=== PATIENT | male | born 1965 | race Two or more races ===

== ENCOUNTER 2020-06-07 19:02 | Inpatient (IN) | payer OTHER ==
[~2020-06-07] VITALS: Ht 157.5 cm; Wt 72.2 kg
[2020-06-07] VITALS (7 sets, daily range): BP systolic 161–173; BP diastolic 75–90
[2020-06-07] MEDS ORDERED: PLEASE ENTER ALLERGIES MC SCH (19:30)
[2020-06-07] MEDS ORDERED: PANTOPRAZOLE 40 MG IV IVPush ONE (19:30)
[2020-06-07] MEDS ORDERED: SODIUM CHLORIDE FLUSH 10ML SYR IVF ONE (19:30)
[2020-06-07] MEDS: PANTOPRAZOLE 80 MG in SODIUM CHLORIDE 0.9% 100 ML IV SCH (19:34)
[2020-06-07 19:43] LABS: MEAN CORPUSCULAR HEMOGLOBIN 38.8 pg (27.5-34.5); MEAN CORPUSCULAR HGB CONC 33.9 g/dL (33.2-36.2); MEAN PLATELET VOLUME 9.7 fL (7.4-10.4); PLATELET COUNT 144 x10^3/uL (130-400); RED BLOOD COUNT 1.74 x10^6/uL (4.38-5.82); RED CELL DISTRIBUTION WIDTH 15.3 % (9.4-14.8)
[2020-06-07 19:45] LABS: ALANINE AMINOTRANSFERASE 16 U/L (12-78); ALBUMIN 2.9 g/dL (3.4-5.0)
[2020-06-07 19:47] LABS: ALKALINE PHOSPHATASE 130 U/L (45-117); BILIRUBIN,TOTAL 0.3 mg/dL (0.2-1.0); TOTAL PROTEIN 7.3 g/dL (6.4-8.2)
[2020-06-07] MEDS ORDERED: PANTOPRAZOLE 40 MG IV ONE (19:47)
[2020-06-07 19:48] LABS: HEMOGRAM NOTE RECHECKED
--- NOTE | 2020-06-07 19:55 | NUR ---
PT IS TRANSFER FROM [facility] VIA EMS. PT WAS SEEN AT [facility] EARLIER TODAY FOR EPISTAXIS, NASAL PACKING PLACED & PT WENT HOME. PT THEN WENT BACK TO [facility] FOR REPORTED WEAKNESS & 10 LOOSE STOOL/DAY VIA FAMILY (PT IS [place] SPEAKING ONLY). PTS +OCCULT STOOL C H/H 6.5/18.5. PT HX OF ETOH ABUSE, REPORTED NO HX IN LAST 2 YRS. PT AMBULATORY FROM [facility] C STEADY GAIT. HAS 20G TO LAC, PATENT. PLACED ON MONITOR, NSR @80, EKG COMPLETED. DENIES ANY PAIN. PT AWARE OF PLAN FOR BLOOD TRANSFUSION, ADDITIONAL IV PLACED, LABS DRAWN & SENT. STARTED ON MEDS PER MAY.
[2020-06-07 19:59] LABS: ANION GAP 18 mmol/L (5-15); CHLORIDE 111 mmol/L (98-107); MD YES
[2020-06-07 20:00] LABS: INTERNATIONAL NORMALIZED RATIO 1.19 (0.93-1.1); PROTHROMBIN TIME 12.7 Seconds (9.6-11.5)
[2020-06-07 20:02] LABS: BAND#(MANUAL) 0.06 x10^3/uL; BANDS%(MANUAL) 1 % (0-7); BASOS#(MANUAL) 0.06 x10^3/uL (0-0.1); BASOS% (MANUAL) 1 % (0-1); EOS#(MANUAL) 0.25 x10^3/uL (0.0-0.4); EOS% (MANUAL) 4 % (1-7); LYMPH#(MANUAL) 0.63 x10^3/uL (1-3.4); LYMPHS% (MANUAL) 10 % (22-44); MONOS#(MANUAL) 0.38 x10^3/uL (0.3-2.7); MONOS% (MANUAL) 6 % (2-9); SEG#(MANUAL) 4.91 x10^3/uL (1.8-6.8); SEGS% (MANUAL) 78 % (42-75)
[2020-06-07 20:03] LABS: ANISOCYTOSIS 2+
--- NOTE | 2020-06-07 20:03 | NUR ---
BLADDER SCAN:120ML. PT DENIES ANY DYSURIA. MD AWARE, NO PLAN FOR WINSTON. URINAL AT BS.
[2020-06-07 20:04] LABS: <PLATELET ESTIMATE> ADEQUATE; <PLT MORPHOLOGY> NORMAL PLT MORPH; MICROCYTOSIS 1+; OVALOCYTES 1+
[2020-06-07 20:08] LABS: CALCIUM < 5.0 mg/dL (8.5-10.1)
--- NOTE | 2020-06-07 20:10 | NUR ---
Pt with positive antibodies, blood bank needs to know when pt was last tx and where. If at any time pt unstable and need emergent blood call [phone].
[2020-06-07] MEDS ORDERED: CALCIUM GLUCONATE 4.6 MEQ/10 ML ONE (20:21)
[2020-06-07] MEDS ORDERED: CALCIUM GLUCONATE 4.6 MEQ/10 ML IVPush ONE (20:30)
[2020-06-07] MEDS ORDERED: ALBUMIN HUMAN 25% 100 ML IV ONE (20:30)
[2020-06-07] MEDS ORDERED: CALCIUM GLUCONATE 4.6 MEQ in SODIUM CHLORIDE 0.9% 100 ML IV ONE (20:30)
--- NOTE | 2020-06-07 20:43 | NUR ---
150ML CLEAR YELLOW URINE VOID POST BLADDER SCAN
[2020-06-07] MEDS ORDERED: SODIUM CHLORIDE FLUSH 10ML SYR IVF PRN (21:00)
--- NOTE | 2020-06-07 21:43 | NUR ---
ADMITTING MD AT , SPOKE C ER MD, PLAN FOR DIALYSIS. STARTED ON TRANSFUSION.
[2020-06-07] MEDS ORDERED: hydrALAzine 20 MG/ML, 1ML IVPush PRN (22:00)
[2020-06-07] MEDS ORDERED: DOCUSATE 100 MG CAPSULE PO PRN (22:00)
[2020-06-07] MEDS ORDERED: morphine SULFATE 10 MG/ML, 1ML IVPush PRN (22:00)
[2020-06-07] MEDS ORDERED: BISACODYL 10 MG SUPP PR PRN (22:00)
[2020-06-07] MEDS ORDERED: PROMETHAZINE 25 MG/ML, 1ML IM PRN (22:00)
[2020-06-07] MEDS ORDERED: ONDANSETRON 2MG/ML, 2ML IVPush PRN (22:00)
[2020-06-07] MEDS ORDERED: OXYcodone IR 5MG TABLET PO PRN (22:00)
[2020-06-07] MEDS ORDERED: ONDANSETRON ODT 4 MG PO PRN (22:00)
[2020-06-07] MEDS ORDERED: POLYETHYLENE GLYCOL 17 GM PACKET PO PRN (22:00)
[2020-06-07] MEDS ORDERED: LIDOCAINE 1%, 10ML ONE (22:07)
--- NOTE | 2020-06-07 22:12 | NUR ---
SPOKE C HEEL SANDER RUBBER, AWARE PT IS GOING TO FLOOR AND DOES NOT HAVE DIALYSIS CATH AT THIS TIME.
--- NOTE | 2020-06-07 22:26 | NUR ---
DR NGO AT TO PLACE DIALYSIS CATH. CHARGE AWARE OF DELAY
--- NOTE | 2020-06-07 22:56 | NUR ---
DIALYSIS PORT COMPLETED, CXR AT , OK TO USE VIA DR RODRIGUEZ. SPOKE Charles GONG RN, WILL, AWARE PT BEING SENT TO [phone].
--- NOTE | 2020-06-07 23:00 | NUR ---
LAB CALLED FOR CRITICAL, CA<5 & PTH MACHINE IS DOWN, ENGINEERS HAVE BEEN CALLED, UNSURE WHEN PROBLEM WILL BE RESOLVED.
[2020-06-07 23:01] LABS: CALCIUM < 5.0 mg/dL (8.5-10.1)
[2020-06-08] VITALS (16 sets, daily range): BP systolic 126–172; BP diastolic 72–95
[2020-06-08] MEDS: HEPARIN 5,000 UNITS/ML, 1ML SQ SCH ×4 (03:49→22:00)
[2020-06-08] MEDS: PANTOPRAZOLE 80 MG in SODIUM CHLORIDE 0.9% 100 ML IV SCH ×2 (04:07→14:21)
[2020-06-08 05:55] LABS: BASOPHILS % (AUTO) 0 % (0-1); CHLORIDE 106 mmol/L (98-107); EOSINOPHILS % (AUTO) 3 % (1-7); LYMPHOCYTES % (AUTO) 9 % (22-44); MEAN CORPUSCULAR HEMOGLOBIN 35.8 pg (27.5-34.5); MEAN CORPUSCULAR HGB CONC 34.9 g/dL (33.2-36.2); MEAN PLATELET VOLUME 9.7 fL (7.4-10.4); MONOCYTES % (AUTO) 8 % (2-9); NEUTROPHILS % (AUTO) 80 % (42-75); PLATELET COUNT 100 x10^3/uL (130-400); RED BLOOD COUNT 2.52 x10^6/uL (4.38-5.82); RED CELL DISTRIBUTION WIDTH 23.4 % (9.4-14.8)
[2020-06-08 06:27] LABS: MD MORPH REVIEW ONLY
[2020-06-08 06:28] LABS: MICROSCOPIC AUTO
[2020-06-08 06:30] LABS: <PLATELET ESTIMATE> DECREASED; ALANINE AMINOTRANSFERASE 16 U/L (12-78); ALBUMIN 3.3 g/dL (3.4-5.0); ALKALINE PHOSPHATASE 123 U/L (45-117); ANION GAP 15 mmol/L (5-15); ANISOCYTOSIS 2+; CALCIUM 6.3 mg/dL (8.5-10.1); CHOL/HDL RATIO 5.4; CHOLESTEROL, TOTAL 152 mg/dL (140-239); CREATINE KINASE, TOTAL 1185 U/L (39-308); HDL CHOL % 18 % (26-37); HDL CHOLESTEROL (DIRECT) 28 mg/dL (40-60); LARGE PLATELETS 1+; LDL CHOLESTEROL,CALCULATED 103 mg/dL (54-169); LDL/HDL RATIO 3.7 (0.5-3.0); MICROCYTOSIS 1+; TOTAL PROTEIN 7.6 g/dL (6.4-8.2); TRIGLYCERIDES 103 mg/dL (50-200); VLDL CHOLESTEROL 21 mg/dL (0-25)
[2020-06-08 06:31] LABS: OVALOCYTES 1+
[2020-06-08 06:31] LABS: CHLORIDE,URINE RANDOM 69 mmol/L; POTASSIUM,URINE RANDOM 18 mmol/L; SODIUM,URINE RANDOM 67 mmol/L
[2020-06-08] MEDS ORDERED: MAGNESIUM SULFATE PMX 2GM/50ML 50 ML IV ONE (08:30)
[2020-06-08] MEDS: LOSARTAN 50MG TABLET PO SCH (08:54)
[2020-06-08] MEDS: CEPHALEXIN 500 MG CAPSULE PO SCH ×2 (08:54→21:02)
[2020-06-08] MEDS: IRON SUCROSE COMPLEX 100MG/5ML IV SCH (11:37)
[2020-06-08] MEDS: CALCITRIOL 0.25 MCG CAPSULE PO SCH (11:37)
[2020-06-08] MEDS: ARANESP 100 MCG/ML **ESRD SQ SCH (11:37)
[2020-06-08 14:17] LABS: MICROSCOPIC INDICATED
[2020-06-08 14:18] LABS: CREATININE,URINE RANDOM 54.9 mg/dL
[2020-06-09 00:30] VITALS: BP 135/75
[2020-06-09] MEDS: PANTOPRAZOLE 80 MG in SODIUM CHLORIDE 0.9% 100 ML IV SCH ×3 (01:45→23:43)
[2020-06-09 05:07] LABS: BASOPHILS % (AUTO) 0 % (0-1); EOSINOPHILS % (AUTO) 4 % (1-7); LYMPHOCYTES % (AUTO) 12 % (22-44); MEAN CORPUSCULAR HEMOGLOBIN 36.3 pg (27.5-34.5); MEAN CORPUSCULAR HGB CONC 35.9 g/dL (33.2-36.2); MEAN PLATELET VOLUME 8.6 fL (7.4-10.4); MONOCYTES % (AUTO) 10 % (2-9); NEUTROPHILS % (AUTO) 73 % (42-75); PLATELET COUNT 93 x10^3/uL (130-400); RED BLOOD COUNT 2.71 x10^6/uL (4.38-5.82); RED CELL DISTRIBUTION WIDTH 23.2 % (9.4-14.8)
[2020-06-09] MEDS: HEPARIN 5,000 UNITS/ML, 1ML SQ SCH ×3 (05:13→22:00)
[2020-06-09 05:14] LABS: ALANINE AMINOTRANSFERASE 16 U/L (12-78); ALBUMIN 3.2 g/dL (3.4-5.0); ANION GAP 11 mmol/L (5-15); CALCIUM 6.5 mg/dL (8.5-10.1); CHLORIDE 101 mmol/L (98-107); CREATININE 9.06 mg/dL (0.7-1.3)
[2020-06-09 05:16] LABS: ALKALINE PHOSPHATASE 123 U/L (45-117); BILIRUBIN,TOTAL 0.5 mg/dL (0.2-1.0); TOTAL PROTEIN 7.7 g/dL (6.4-8.2)
[2020-06-09 05:36] LABS: MD SCAN
[2020-06-09 07:07] VITALS: BP 123/82
[2020-06-09] MEDS: LOSARTAN 50MG TABLET PO SCH (09:00)
[2020-06-09] MEDS: CALCITRIOL 0.25 MCG CAPSULE PO SCH (09:27)
[2020-06-09] MEDS: CEPHALEXIN 500 MG CAPSULE PO SCH ×2 (09:27→21:12)
[2020-06-09 10:41] LABS: OCCULT BLOOD POSITIVE (NEGATIVE)
[2020-06-09 12:48] VITALS: BP 143/79
[2020-06-09] MEDS: IRON SUCROSE COMPLEX 100MG/5ML IV SCH (14:52)
[2020-06-09 17:23] VITALS: BP 154/84
[2020-06-09 20:18] VITALS: BP 110/73
[2020-06-10 01:36] VITALS: BP 102/70
[2020-06-10] MEDS: HEPARIN 5,000 UNITS/ML, 1ML SQ SCH ×3 (06:00→19:58)
[2020-06-10] MEDS: CEPHALEXIN 500 MG CAPSULE PO SCH ×2 (08:04→20:59)
[2020-06-10] MEDS: LOSARTAN 50MG TABLET PO SCH (08:04)
[2020-06-10] MEDS: CALCITRIOL 0.25 MCG CAPSULE PO SCH (08:04)
[2020-06-10 08:06] VITALS: BP 104/67
[2020-06-10 08:26] VITALS: BP 105/70
[2020-06-10] MEDS: PANTOPRAZOLE 80 MG in SODIUM CHLORIDE 0.9% 100 ML IV SCH ×2 (09:46→21:00)
[2020-06-10] MEDS: ERGOCALCIFEROL 50,000 UNIT CAPSULE PO SCH (09:46)
[2020-06-10 10:32] LABS: BASOPHILS % (AUTO) 0 % (0-1); EOSINOPHILS % (AUTO) 4 % (1-7); LYMPHOCYTES % (AUTO) 16 % (22-44); MEAN CORPUSCULAR HEMOGLOBIN 35.4 pg (27.5-34.5); MEAN CORPUSCULAR HGB CONC 34.2 g/dL (33.2-36.2); MONOCYTES % (AUTO) 7 % (2-9); NEUTROPHILS % (AUTO) 73 % (42-75); PLATELET COUNT 123 x10^3/uL (130-400); RED BLOOD COUNT 3.12 x10^6/uL (4.38-5.82); RED CELL DISTRIBUTION WIDTH 22.8 % (9.4-14.8)
[2020-06-10 10:36] LABS: MD NO
[2020-06-10 14:24] VITALS: BP 98/71
[2020-06-10] MEDS: IRON SUCROSE COMPLEX 100MG/5ML IV SCH (15:38)
[2020-06-10 20:00] VITALS: BP 104/75
[2020-06-11 01:10] VITALS: BP 110/82
[2020-06-11] MEDS: HEPARIN 5,000 UNITS/ML, 1ML SQ SCH ×3 (04:51→21:01)
[2020-06-11 05:22] LABS: BASOPHILS % (AUTO) 0 % (0-1); EOSINOPHILS % (AUTO) 6 % (1-7); LYMPHOCYTES % (AUTO) 14 % (22-44); MEAN CORPUSCULAR HGB CONC 34.7 g/dL (33.2-36.2); MEAN PLATELET VOLUME 9.9 fL (7.4-10.4); MONOCYTES % (AUTO) 10 % (2-9); NEUTROPHILS % (AUTO) 70 % (42-75); PLATELET COUNT 106 x10^3/uL (130-400); RED BLOOD COUNT 3.12 x10^6/uL (4.38-5.82); RED CELL DISTRIBUTION WIDTH 22.5 % (9.4-14.8)
[2020-06-11 05:31] LABS: ALBUMIN 3.7 g/dL (3.4-5.0); ANION GAP 11 mmol/L (5-15); CALCIUM 7.5 mg/dL (8.5-10.1); CHLORIDE 95 mmol/L (98-107); CREATININE 7.06 mg/dL (0.7-1.3)
[2020-06-11 05:49] LABS: MD SCAN
[2020-06-11] MEDS: PANTOPRAZOLE 80 MG in SODIUM CHLORIDE 0.9% 100 ML IV SCH ×2 (06:24→15:16)
[2020-06-11 07:00] VITALS: BP 96/64
[2020-06-11] MEDS: CALCITRIOL 0.25 MCG CAPSULE PO SCH (12:05)
[2020-06-11] MEDS: LOSARTAN 25MG TABLET PO SCH (12:05)
[2020-06-11] MEDS: CEPHALEXIN 500 MG CAPSULE PO SCH ×2 (12:05→21:01)
[2020-06-11] MEDS ORDERED: FLUMAZENIL 0.1 MG/1 ML, 5ML ONE (12:38)
[2020-06-11] MEDS ORDERED: MIDAZOLAM 1 MG/ML, 5ML ONE (12:38)
[2020-06-11] MEDS ORDERED: FENTANYL PF 100 MCG/2ML ONE (12:38)
[2020-06-11] MEDS ORDERED: NALOXONE 1 MG/ML, 2ML ONE (12:38)
[2020-06-11] MEDS ORDERED: LIDOCAINE 1%, 10ML ONE (12:50)
[2020-06-11 14:09] VITALS: BP 106/88
[2020-06-11] MEDS: IRON SUCROSE COMPLEX 100MG/5ML IV SCH (15:16)
[2020-06-11] MEDS ORDERED: SODIUM CHLORIDE 0.9%, 500ML IVBOLUS ONE (16:00)
[2020-06-11 19:51] VITALS: BP 111/99
[2020-06-12 02:00] VITALS: BP 108/72
[2020-06-12] MEDS: PANTOPRAZOLE 80 MG in SODIUM CHLORIDE 0.9% 100 ML IV SCH ×2 (03:06→13:04)
[2020-06-12 05:23] LABS: BASOPHILS % (AUTO) 0 % (0-1); EOSINOPHILS % (AUTO) 8 % (1-7); LYMPHOCYTES % (AUTO) 14 % (22-44); MD NO; MEAN CORPUSCULAR HEMOGLOBIN 35.7 pg (27.5-34.5); MEAN CORPUSCULAR HGB CONC 34.4 g/dL (33.2-36.2); MEAN PLATELET VOLUME 10.5 fL (7.4-10.4); MONOCYTES % (AUTO) 8 % (2-9); NEUTROPHILS % (AUTO) 70 % (42-75); PLATELET COUNT 104 x10^3/uL (130-400); RED BLOOD COUNT 2.93 x10^6/uL (4.38-5.82); RED CELL DISTRIBUTION WIDTH 21.9 % (9.4-14.8)
[2020-06-12] MEDS: HEPARIN 5,000 UNITS/ML, 1ML SQ SCH ×2 (05:26→17:59)
[2020-06-12 05:38] LABS: ALBUMIN 3.4 g/dL (3.4-5.0); ANION GAP 11 mmol/L (5-15); CALCIUM 6.8 mg/dL (8.5-10.1); CHLORIDE 97 mmol/L (98-107)
[2020-06-12 05:41] LABS: ALANINE AMINOTRANSFERASE 17 U/L (12-78); ALKALINE PHOSPHATASE 120 U/L (45-117); BILIRUBIN,TOTAL 0.5 mg/dL (0.2-1.0); CREATININE 7.12 mg/dL (0.7-1.3); TOTAL PROTEIN 7.6 g/dL (6.4-8.2)
[2020-06-12 07:59] VITALS: BP 100/63
[2020-06-12] MEDS: CALCITRIOL 0.25 MCG CAPSULE PO SCH (09:20)
[2020-06-12] MEDS: CEPHALEXIN 500 MG CAPSULE PO SCH ×2 (09:20→21:01)
[2020-06-12] MEDS: LOSARTAN 25MG TABLET PO SCH (09:20)
[2020-06-12 16:03] VITALS: BP 117/70
[2020-06-12] MEDS ORDERED: IRON SUCROSE COMPLEX 100MG/5ML ONE ×2 (17:55→17:57)
[2020-06-12] MEDS: IRON SUCROSE COMPLEX 100MG/5ML IV SCH (17:58)
[2020-06-12 19:03] VITALS: BP 106/61
[2020-06-13 00:39] VITALS: BP 120/69
[2020-06-13] MEDS: HEPARIN 5,000 UNITS/ML, 1ML SQ SCH ×3 (02:07→21:28)
[2020-06-13] MEDS: PANTOPRAZOLE 40MG TABLET PO SCH (05:58)
[2020-06-13 06:33] VITALS: BP 119/73
[2020-06-13 13:58] VITALS: BP 120/74
[2020-06-13] MEDS: CEPHALEXIN 500 MG CAPSULE PO SCH ×2 (14:01→21:27)
[2020-06-13] MEDS: CALCITRIOL 0.25 MCG CAPSULE PO SCH (14:01)
[2020-06-13] MEDS: LOSARTAN 25MG TABLET PO SCH (14:01)
[2020-06-13 19:50] VITALS: BP 119/75
[2020-06-14 00:10] VITALS: BP 114/69
[2020-06-14] MEDS: HEPARIN 5,000 UNITS/ML, 1ML SQ SCH ×3 (03:25→21:09)
[2020-06-14] MEDS: PANTOPRAZOLE 40MG TABLET PO SCH (05:44)
[2020-06-14 06:42] VITALS: BP 99/62
[2020-06-14] MEDS ORDERED: LIDOCAINE 1%, 10ML ONE (08:06)
[2020-06-14] MEDS ORDERED: LIDOCAINE 1%, 20ML ONE (08:06)
[2020-06-14] MEDS ORDERED: MIDAZOLAM 1 MG/ML, 5ML ONE (08:08)
[2020-06-14] MEDS ORDERED: FLUMAZENIL 0.1 MG/1 ML, 5ML ONE (08:08)
[2020-06-14] MEDS ORDERED: FENTANYL PF 100 MCG/2ML ONE (08:08)
[2020-06-14] MEDS ORDERED: NALOXONE 1 MG/ML, 2ML ONE (08:08)
[2020-06-14 10:10] VITALS: BP 114/70
[2020-06-14] MEDS: LOSARTAN 25MG TABLET PO SCH (12:10)
[2020-06-14] MEDS: CALCITRIOL 0.25 MCG CAPSULE PO SCH (12:10)
[2020-06-14] MEDS: CEPHALEXIN 500 MG CAPSULE PO SCH (12:10)
[2020-06-14 12:40] VITALS: BP 107/72
[2020-06-14 19:54] VITALS: BP 106/69
[2020-06-15 00:28] VITALS: BP 113/70
[2020-06-15 05:11] LABS: BASOPHILS % (AUTO) 0 % (0-1); EOSINOPHILS % (AUTO) 8 % (1-7); LYMPHOCYTES % (AUTO) 12 % (22-44); MEAN CORPUSCULAR HEMOGLOBIN 36.4 pg (27.5-34.5); MEAN CORPUSCULAR HGB CONC 34.5 g/dL (33.2-36.2); MEAN PLATELET VOLUME 9.7 fL (7.4-10.4); MONOCYTES % (AUTO) 10 % (2-9); NEUTROPHILS % (AUTO) 71 % (42-75); PLATELET COUNT 108 x10^3/uL (130-400); RED BLOOD COUNT 2.58 x10^6/uL (4.38-5.82); RED CELL DISTRIBUTION WIDTH 22.8 % (9.4-14.8)
[2020-06-15 05:20] LABS: CHLORIDE 97 mmol/L (98-107)
[2020-06-15 05:28] LABS: ANION GAP 14 mmol/L (5-15); CALCIUM 6.2 mg/dL (8.5-10.1)
[2020-06-15] MEDS: PANTOPRAZOLE 40MG TABLET PO SCH (05:43)
[2020-06-15] MEDS: HEPARIN 5,000 UNITS/ML, 1ML SQ SCH ×3 (05:43→21:17)
[2020-06-15 06:00] LABS: MD SCAN
[2020-06-15 07:40] VITALS: BP 131/68
[2020-06-15] MEDS: LOSARTAN 25MG TABLET PO SCH (09:00)
[2020-06-15] MEDS: ARANESP 100 MCG/ML **ESRD SQ SCH (10:30)
[2020-06-15] MEDS: CALCITRIOL 0.25 MCG CAPSULE PO SCH (12:14)
[2020-06-15 13:39] VITALS: BP 103/66
[2020-06-15 19:45] VITALS: BP 114/67
[2020-06-16 01:29] VITALS: BP 102/64
[2020-06-16] MEDS: HEPARIN 5,000 UNITS/ML, 1ML SQ SCH ×2 (06:04→18:30)
[2020-06-16] MEDS: PANTOPRAZOLE 40MG TABLET PO SCH (06:04)
[2020-06-16 08:02] VITALS: BP 97/60
[2020-06-16] MEDS: LOSARTAN 25MG TABLET PO SCH (08:32)
[2020-06-16] MEDS: CALCITRIOL 0.25 MCG CAPSULE PO SCH (08:39)
[2020-06-16 14:21] VITALS: BP 124/67
[2020-06-16 19:14] VITALS: BP 128/71
[2020-06-17 00:52] VITALS: BP 126/69
[2020-06-17 05:33] LABS: BASOPHILS % (AUTO) 0 % (0-1); EOSINOPHILS % (AUTO) 7 % (1-7); LYMPHOCYTES % (AUTO) 15 % (22-44); MEAN CORPUSCULAR HEMOGLOBIN 36.7 pg (27.5-34.5); MEAN CORPUSCULAR HGB CONC 34.7 g/dL (33.2-36.2); MEAN PLATELET VOLUME 9.6 fL (7.4-10.4); MONOCYTES % (AUTO) 11 % (2-9); NEUTROPHILS % (AUTO) 67 % (42-75); PLATELET COUNT 122 x10^3/uL (130-400); RED CELL DISTRIBUTION WIDTH 23.6 % (9.4-14.8)
[2020-06-17 05:41] LABS: CHLORIDE 91 mmol/L (98-107)
[2020-06-17 05:47] LABS: ALANINE AMINOTRANSFERASE 17 U/L (12-78); ALBUMIN 3.3 g/dL (3.4-5.0); ALKALINE PHOSPHATASE 115 U/L (45-117); ANION GAP 17 mmol/L (5-15); BILIRUBIN,TOTAL 0.4 mg/dL (0.2-1.0); CALCIUM 6.6 mg/dL (8.5-10.1); TOTAL PROTEIN 7.2 g/dL (6.4-8.2)
[2020-06-17 06:06] LABS: MD SCAN
[2020-06-17] MEDS: PANTOPRAZOLE 40MG TABLET PO SCH (06:06)
[2020-06-17] MEDS: HEPARIN 5,000 UNITS/ML, 1ML SQ SCH ×2 (06:08→18:39)
[2020-06-17 06:10] VITALS: BP 132/75
[2020-06-17] MEDS: CALCITRIOL 0.25 MCG CAPSULE PO SCH (08:26)
[2020-06-17] MEDS: ERGOCALCIFEROL 50,000 UNIT CAPSULE PO SCH (08:26)
[2020-06-17] MEDS: LOSARTAN 25MG TABLET PO SCH (08:26)
[2020-06-17 14:27] VITALS: BP 128/74
[2020-06-17 19:24] VITALS: BP 140/76
[2020-06-18 01:46] VITALS: BP 133/72
[2020-06-18 05:45] LABS: BASOPHILS % (AUTO) 0 % (0-1); EOSINOPHILS % (AUTO) 5 % (1-7); LYMPHOCYTES % (AUTO) 11 % (22-44); MEAN CORPUSCULAR HEMOGLOBIN 36.6 pg (27.5-34.5); MEAN PLATELET VOLUME 9.1 fL (7.4-10.4); MONOCYTES % (AUTO) 10 % (2-9); NEUTROPHILS % (AUTO) 75 % (42-75); PLATELET COUNT 131 x10^3/uL (130-400); RED BLOOD COUNT 2.43 x10^6/uL (4.38-5.82); RED CELL DISTRIBUTION WIDTH 23.2 % (9.4-14.8)
[2020-06-18 05:54] LABS: ANION GAP 15 mmol/L (5-15); CALCIUM 6.1 mg/dL (8.5-10.1); CHLORIDE 91 mmol/L (98-107)
[2020-06-18 05:57] LABS: ALANINE AMINOTRANSFERASE 18 U/L (12-78); ALKALINE PHOSPHATASE 119 U/L (45-117); BILIRUBIN,TOTAL 0.3 mg/dL (0.2-1.0); TOTAL PROTEIN 6.8 g/dL (6.4-8.2)
[2020-06-18 06:12] LABS: MD MORPH REVIEW ONLY
[2020-06-18 06:13] LABS: <PLATELET ESTIMATE> DECREASED; <PLT MORPHOLOGY> NORMAL PLT MORPH; ANISOCYTOSIS 1+; OVALOCYTES 1+; TEAR DROPS 1+
[2020-06-18 06:51] VITALS: BP 132/64
[2020-06-18] MEDS: HEPARIN 5,000 UNITS/ML, 1ML SQ SCH ×2 (07:17→17:42)
[2020-06-18] MEDS: PANTOPRAZOLE 40MG TABLET PO SCH (07:17)
[2020-06-18] MEDS: LOSARTAN 25MG TABLET PO SCH (08:21)
[2020-06-18] MEDS: CALCITRIOL 0.25 MCG CAPSULE PO SCH (08:21)
[2020-06-18 12:17] VITALS: BP 142/88
[2020-06-18 20:26] VITALS: BP 137/82
[2020-06-19 01:39] VITALS: BP 132/77
[2020-06-19] MEDS: HEPARIN 5,000 UNITS/ML, 1ML SQ SCH ×2 (05:28→18:00)
[2020-06-19] MEDS: PANTOPRAZOLE 40MG TABLET PO SCH (05:28)
[2020-06-19 07:23] VITALS: BP 114/67
[2020-06-19 08:12] LABS: ANION GAP 8 mmol/L (5-15); CALCIUM 7.3 mg/dL (8.5-10.1); CHLORIDE 99 mmol/L (98-107)
[2020-06-19 08:13] LABS: CREATININE 8.22 mg/dL (0.7-1.3)
[2020-06-19] MEDS: CALCITRIOL 0.25 MCG CAPSULE PO SCH (09:17)
[2020-06-19] MEDS: LOSARTAN 25MG TABLET PO SCH (09:17)
[2020-06-19 12:25] VITALS: BP 124/66
[2020-06-19 18:52] VITALS: BP 123/68
[2020-06-20 02:10] VITALS: BP 119/66
[2020-06-20] MEDS: PANTOPRAZOLE 40MG TABLET PO SCH (06:01)
[2020-06-20] MEDS: HEPARIN 5,000 UNITS/ML, 1ML SQ SCH ×2 (06:01→18:00)
[2020-06-20 07:35] VITALS: BP 119/72
[2020-06-20] MEDS: LOSARTAN 25MG TABLET PO SCH (09:00)
[2020-06-20] MEDS: CALCITRIOL 0.25 MCG CAPSULE PO SCH (10:03)
[2020-06-20 13:36] VITALS: BP 120/64
[2020-06-20 19:06] VITALS: BP 147/77
[2020-06-21 01:38] VITALS: BP 128/70
[2020-06-21] MEDS: PANTOPRAZOLE 40MG TABLET PO SCH (06:21)
[2020-06-21] MEDS: HEPARIN 5,000 UNITS/ML, 1ML SQ SCH ×2 (06:21→17:11)
[2020-06-21 08:01] VITALS: BP 143/64
[2020-06-21] MEDS: LOSARTAN 25MG TABLET PO SCH (08:36)
[2020-06-21] MEDS: CALCITRIOL 0.25 MCG CAPSULE PO SCH (08:36)
[2020-06-21 14:17] VITALS: BP 150/72
[2020-06-21 19:09] VITALS: BP 143/73
[2020-06-22] VITALS (7 sets, daily range): BP systolic 78–143; BP diastolic 65–77
[2020-06-22] MEDS: HEPARIN 5,000 UNITS/ML, 1ML SQ SCH ×2 (06:04→18:02)
[2020-06-22] MEDS: PANTOPRAZOLE 40MG TABLET PO SCH (06:05)
[2020-06-22] MEDS: ARANESP 100 MCG/ML **ESRD SQ SCH ×2 (10:30→13:55)
[2020-06-22] MEDS: CALCITRIOL 0.25 MCG CAPSULE PO SCH (13:24)
[2020-06-22] MEDS: LOSARTAN 25MG TABLET PO SCH (13:24)
[2020-06-23 00:50] VITALS: BP 104/63
[2020-06-23] MEDS: PANTOPRAZOLE 40MG TABLET PO SCH (06:16)
[2020-06-23] MEDS: HEPARIN 5,000 UNITS/ML, 1ML SQ SCH ×2 (06:16→17:39)
[2020-06-23 07:29] VITALS: BP 117/72
[2020-06-23] MEDS: CALCITRIOL 0.25 MCG CAPSULE PO SCH (09:28)
[2020-06-23] MEDS: LOSARTAN 25MG TABLET PO SCH (09:28)
[2020-06-23 12:01] VITALS: BP 115/73
[2020-06-23 20:42] VITALS: BP 115/75
[2020-06-24 02:13] VITALS: BP 110/67
[2020-06-24] MEDS: PANTOPRAZOLE 40MG TABLET PO SCH (06:16)
[2020-06-24] MEDS: HEPARIN 5,000 UNITS/ML, 1ML SQ SCH ×2 (06:16→17:52)
[2020-06-24 07:31] VITALS: BP 116/61
[2020-06-24] MEDS: ERGOCALCIFEROL 50,000 UNIT CAPSULE PO SCH (08:28)
[2020-06-24] MEDS: CALCITRIOL 0.25 MCG CAPSULE PO SCH (08:28)
[2020-06-24] MEDS: LOSARTAN 25MG TABLET PO SCH (08:28)
[2020-06-24 13:57] VITALS: BP 119/72
[2020-06-24 20:16] VITALS: BP 143/76
[2020-06-25 01:23] VITALS: BP 118/66
[2020-06-25] MEDS: HEPARIN 5,000 UNITS/ML, 1ML SQ SCH ×2 (06:25→17:52)
[2020-06-25] MEDS: PANTOPRAZOLE 40MG TABLET PO SCH (06:25)
[2020-06-25 06:54] VITALS: BP 128/68
[2020-06-25] MEDS: LOSARTAN 25MG TABLET PO SCH (07:27)
[2020-06-25] MEDS: CALCITRIOL 0.25 MCG CAPSULE PO SCH (07:27)
[2020-06-25 11:53] VITALS: BP 134/75
[2020-06-25 20:47] VITALS: BP 135/75
[2020-06-26 00:19] VITALS: BP 112/66
[2020-06-26] MEDS: PANTOPRAZOLE 40MG TABLET PO SCH (06:24)
[2020-06-26] MEDS: HEPARIN 5,000 UNITS/ML, 1ML SQ SCH ×2 (06:24→18:11)
[2020-06-26 07:34] VITALS: BP 136/77
[2020-06-26] MEDS: CALCITRIOL 0.25 MCG CAPSULE PO SCH (10:14)
[2020-06-26] MEDS: LOSARTAN 25MG TABLET PO SCH (10:14)
[2020-06-26 12:53] VITALS: BP 152/82
[2020-06-26 19:00] VITALS: BP 131/77
[2020-06-27 00:16] VITALS: BP 130/69
[2020-06-27] MEDS: HEPARIN 5,000 UNITS/ML, 1ML SQ SCH ×2 (06:01→18:18)
[2020-06-27] MEDS: PANTOPRAZOLE 40MG TABLET PO SCH (06:01)
[2020-06-27 06:22] VITALS: BP 138/75
[2020-06-27] MEDS: LOSARTAN 25MG TABLET PO SCH (09:00)
[2020-06-27] MEDS: CALCITRIOL 0.25 MCG CAPSULE PO SCH (09:32)
[2020-06-27 14:43] VITALS: BP 113/70
[2020-06-27 18:48] VITALS: BP 129/78
[2020-06-28 01:55] VITALS: BP 120/83
[2020-06-28] MEDS: PANTOPRAZOLE 40MG TABLET PO SCH (06:29)
[2020-06-28] MEDS: HEPARIN 5,000 UNITS/ML, 1ML SQ SCH ×2 (06:29→18:13)
[2020-06-28 06:45] VITALS: BP 124/73
[2020-06-28] MEDS: LOSARTAN 25MG TABLET PO SCH (09:00)
[2020-06-28] MEDS: CALCITRIOL 0.25 MCG CAPSULE PO SCH (09:00)
[2020-06-28 14:05] VITALS: BP 115/67
[2020-06-28 18:56] VITALS: BP 123/69
[2020-06-29 00:41] VITALS: BP 120/73
[2020-06-29] MEDS: PANTOPRAZOLE 40MG TABLET PO SCH (06:06)
[2020-06-29] MEDS: HEPARIN 5,000 UNITS/ML, 1ML SQ SCH ×2 (06:07→18:59)
[2020-06-29 07:27] VITALS: BP 114/73
[2020-06-29] MEDS: LOSARTAN 25MG TABLET PO SCH (09:00)
[2020-06-29] MEDS: CALCITRIOL 0.25 MCG CAPSULE PO SCH (10:24)
[2020-06-29 14:13] VITALS: BP 127/71
[2020-06-29 17:03] LABS: BASOPHILS % (AUTO) 0 % (0-1); EOSINOPHILS % (AUTO) 3 % (1-7); LYMPHOCYTES % (AUTO) 13 % (22-44); MEAN CORPUSCULAR HEMOGLOBIN 38.3 pg (27.5-34.5); MEAN CORPUSCULAR HGB CONC 35.3 g/dL (33.2-36.2); MEAN PLATELET VOLUME 7.9 fL (7.4-10.4); MONOCYTES % (AUTO) 8 % (2-9); NEUTROPHILS % (AUTO) 77 % (42-75); PLATELET COUNT 196 x10^3/uL (130-400); RED BLOOD COUNT 2.71 x10^6/uL (4.38-5.82)
[2020-06-29 17:05] LABS: ALBUMIN 3.9 g/dL (3.4-5.0); ANION GAP 8 mmol/L (5-15); CALCIUM 7.9 mg/dL (8.5-10.1); CHLORIDE 97 mmol/L (98-107)
[2020-06-29 17:06] LABS: CREATININE 5.75 mg/dL (0.7-1.3)
[2020-06-29 17:08] LABS: MD MORPH REVIEW ONLY
[2020-06-29 17:22] LABS: ANISOCYTOSIS 1+
[2020-06-29 17:23] LABS: <PLATELET ESTIMATE> ADEQUATE; <PLT MORPHOLOGY> NORMAL PLT MORPH; POLYCHROMASIA 1+
[2020-06-29] MEDS: ARANESP 100 MCG/ML **ESRD SQ SCH (19:00)
[2020-06-29 19:53] VITALS: BP 116/73
[2020-06-30 00:11] VITALS: BP 114/73
[2020-06-30] MEDS: PANTOPRAZOLE 40MG TABLET PO SCH (06:02)
[2020-06-30] MEDS: HEPARIN 5,000 UNITS/ML, 1ML SQ SCH ×2 (06:03→17:59)
[2020-06-30 06:51] VITALS: BP 121/73
[2020-06-30] MEDS: LOSARTAN 25MG TABLET PO SCH (08:34)
[2020-06-30] MEDS: CALCITRIOL 0.25 MCG CAPSULE PO SCH (08:34)
[2020-06-30 13:43] VITALS: BP 121/68
[2020-06-30 19:21] VITALS: BP 142/81
[2020-07-01 02:22] VITALS: BP 114/76
[2020-07-01] MEDS: HEPARIN 5,000 UNITS/ML, 1ML SQ SCH ×2 (06:00→17:57)
[2020-07-01 06:11] LABS: ANION GAP 12 mmol/L (5-15); CALCIUM 7.2 mg/dL (8.5-10.1); CHLORIDE 93 mmol/L (98-107)
[2020-07-01 06:12] LABS: CREATININE 9.91 mg/dL (0.7-1.3)
[2020-07-01] MEDS: PANTOPRAZOLE 40MG TABLET PO SCH (06:15)
[2020-07-01 06:22] LABS: BASOPHILS % (AUTO) 0 % (0-1); EOSINOPHILS % (AUTO) 4 % (1-7); LYMPHOCYTES % (AUTO) 19 % (22-44); MEAN CORPUSCULAR HEMOGLOBIN 37.6 pg (27.5-34.5); MEAN CORPUSCULAR HGB CONC 34.7 g/dL (33.2-36.2); MEAN PLATELET VOLUME 8.9 fL (7.4-10.4); MONOCYTES % (AUTO) 12 % (2-9); NEUTROPHILS % (AUTO) 66 % (42-75); PLATELET COUNT 167 x10^3/uL (130-400); RED BLOOD COUNT 2.41 x10^6/uL (4.38-5.82); RED CELL DISTRIBUTION WIDTH 21.6 % (9.4-14.8)
[2020-07-01 06:33] LABS: MD NO
[2020-07-01 07:23] VITALS: BP 133/82
[2020-07-01] MEDS: CALCITRIOL 0.25 MCG CAPSULE PO SCH (08:03)
[2020-07-01] MEDS: LOSARTAN 25MG TABLET PO SCH (08:03)
[2020-07-01] MEDS ORDERED: BUPIVACAINE/PF 0.5% ONE (08:44)
[2020-07-01] MEDS ORDERED: HEPARIN 1,000 UNITS/ML, 10ML ONE (08:45)
[2020-07-01] MEDS ORDERED: EPINEPHRINE 1 MG/ML, 1ML ONE (08:45)
[2020-07-01] MEDS ORDERED: PROTAMINE SULFATE 10 MG/ML, 25ML ONE (08:46)
[2020-07-01] MEDS ORDERED: ARANESP 100 MCG/ML **ESRD SQ SCH (09:00)
[2020-07-01] MEDS: ERGOCALCIFEROL 50,000 UNIT CAPSULE PO SCH (09:30)
[2020-07-01] MEDS ORDERED: PROPOFOL 10 MG/ML, 20ML ONE ×2 (09:45→11:04)
[2020-07-01] MEDS ORDERED: ONDANSETRON 2MG/ML, 2ML ONE ×2 (09:45→11:04)
[2020-07-01] MEDS ORDERED: FENTANYL PF 100 MCG/2ML ONE (09:45)
[2020-07-01] MEDS ORDERED: CEFAZOLIN 1,000 MG ONE ×2 (09:45→11:04)
[2020-07-01] MEDS ORDERED: PHENYLEPHRINE 10 MG/ML ONE (10:07)
[2020-07-01] MEDS ORDERED: BUPIVACAINE/PF-EPI 0.5% 1:200K INFIL ONE (10:40)
[2020-07-01] MEDS ORDERED: ACETAMINOPHEN 325 MG TABLET PO PRN (11:00)
[2020-07-01] MEDS ORDERED: LABETALOL 5MG/ML, 20ML IV PRN (11:00)
[2020-07-01] MEDS ORDERED: MEPERIDINE/PF 25MG/0.5ML IVPush PRN (11:00)
[2020-07-01] MEDS ORDERED: HYDROmorphone 1 MG/ML, 1ML INJ IVPush PRN (11:00)
[2020-07-01] MEDS ORDERED: FENTANYL PF 100 MCG/2ML IV PRN (11:00)
[2020-07-01] MEDS ORDERED: OXYcodone 5 MG/5 ML ORAL.SOL UDC PO PRN (11:00)
[2020-07-01] MEDS ORDERED: hydrALAzine 20 MG/ML, 1ML IV PRN (11:00)
[2020-07-01] MEDS ORDERED: PROMETHAZINE 25 MG/ML, 1ML IVPush PRN (11:00)
[2020-07-01] MEDS ORDERED: SUCCINYLCHOLINE 20 MG/ML, 10ML ONE (11:04)
[2020-07-01] MEDS ORDERED: DEXAMETHASONE 4 MG/ML, 1ML ONE (11:04)
[2020-07-01 13:17] VITALS: BP 146/73
[2020-07-01 20:46] VITALS: BP 144/80
[2020-07-02 01:34] VITALS: BP 127/71
[2020-07-02] MEDS: PANTOPRAZOLE 40MG TABLET PO SCH (05:21)
[2020-07-02] MEDS: HEPARIN 5,000 UNITS/ML, 1ML SQ SCH ×2 (05:21→17:42)
[2020-07-02 06:23] LABS: MEAN CORPUSCULAR HEMOGLOBIN 37.3 pg (27.5-34.5); MEAN CORPUSCULAR HGB CONC 34.1 g/dL (33.2-36.2); PLATELET COUNT 164 x10^3/uL (130-400); RED BLOOD COUNT 2.52 x10^6/uL (4.38-5.82)
[2020-07-02 06:35] LABS: ANION GAP 15 mmol/L (5-15); CALCIUM 7.2 mg/dL (8.5-10.1); CHLORIDE 97 mmol/L (98-107)
[2020-07-02 06:45] LABS: MD YES
[2020-07-02 06:46] LABS: ANISOCYTOSIS 1+; LYMPH#(MANUAL) 0.91 x10^3/uL (1-3.4); LYMPHS% (MANUAL) 7 % (22-44); MONOS#(MANUAL) 0.39 x10^3/uL (0.3-2.7); MONOS% (MANUAL) 3 % (2-9); SEGS% (MANUAL) 90 % (42-75)
[2020-07-02 06:47] LABS: <PLATELET ESTIMATE> ADEQUATE; <PLT MORPHOLOGY> NORMAL PLT MORPH; HYPERSEG PMNs 1+; OVALOCYTES 1+
[2020-07-02 07:28] VITALS: BP 119/62
[2020-07-02] MEDS: LOSARTAN 25MG TABLET PO SCH (08:57)
[2020-07-02] MEDS: CALCITRIOL 0.25 MCG CAPSULE PO SCH (08:58)
[2020-07-02 19:14] VITALS: BP 125/76
[2020-07-03 02:10] VITALS: BP 112/64
[2020-07-03] MEDS: PANTOPRAZOLE 40MG TABLET PO SCH (05:43)
[2020-07-03] MEDS: HEPARIN 5,000 UNITS/ML, 1ML SQ SCH ×2 (05:43→17:35)
[2020-07-03 08:40] VITALS: BP 114/65
[2020-07-03] MEDS: LOSARTAN 25MG TABLET PO SCH (08:41)
[2020-07-03] MEDS: CALCITRIOL 0.25 MCG CAPSULE PO SCH (08:41)
[2020-07-03 14:02] VITALS: BP 138/79
[2020-07-03 19:52] VITALS: BP 141/74
[2020-07-04 01:24] VITALS: BP 124/72
[2020-07-04 05:35] LABS: BASOPHILS % (AUTO) 0 % (0-1); EOSINOPHILS % (AUTO) 3 % (1-7); LYMPHOCYTES % (AUTO) 15 % (22-44); MEAN CORPUSCULAR HEMOGLOBIN 38.1 pg (27.5-34.5); MEAN CORPUSCULAR HGB CONC 34.5 g/dL (33.2-36.2); MONOCYTES % (AUTO) 8 % (2-9); NEUTROPHILS % (AUTO) 74 % (42-75); PLATELET COUNT 170 x10^3/uL (130-400); RED BLOOD COUNT 2.43 x10^6/uL (4.38-5.82); RED CELL DISTRIBUTION WIDTH 20.7 % (9.4-14.8)
[2020-07-04 05:39] LABS: MD NO
[2020-07-04 05:52] LABS: ALBUMIN 3.3 g/dL (3.4-5.0); ANION GAP 10 mmol/L (5-15); CALCIUM 7.4 mg/dL (8.5-10.1); CHLORIDE 98 mmol/L (98-107)
[2020-07-04 05:57] LABS: ALANINE AMINOTRANSFERASE 8 U/L (12-78); ALKALINE PHOSPHATASE 91 U/L (45-117); BILIRUBIN,TOTAL 0.3 mg/dL (0.2-1.0); TOTAL PROTEIN 6.6 g/dL (6.4-8.2)
[2020-07-04] MEDS: PANTOPRAZOLE 40MG TABLET PO SCH (06:04)
[2020-07-04] MEDS: HEPARIN 5,000 UNITS/ML, 1ML SQ SCH ×2 (06:04→18:05)
[2020-07-04 08:03] VITALS: BP 119/72
[2020-07-04] MEDS: LOSARTAN 25MG TABLET PO SCH (09:00)
[2020-07-04] MEDS: CALCITRIOL 0.25 MCG CAPSULE PO SCH (09:04)
[2020-07-04 13:16] VITALS: BP 120/75
[2020-07-04 18:55] VITALS: BP 146/79
[2020-07-05 00:15] VITALS: BP 114/68
[2020-07-05] MEDS: HEPARIN 5,000 UNITS/ML, 1ML SQ SCH ×2 (05:23→18:31)
[2020-07-05] MEDS: PANTOPRAZOLE 40MG TABLET PO SCH (05:23)
[2020-07-05 07:40] VITALS: BP 122/68
[2020-07-05] MEDS: CALCITRIOL 0.25 MCG CAPSULE PO SCH (09:25)
[2020-07-05] MEDS: LOSARTAN 25MG TABLET PO SCH (09:26)
[2020-07-05 12:03] VITALS: BP 136/72
[2020-07-05 19:16] VITALS: BP 124/71
[2020-07-06 00:53] VITALS: BP 111/65
[2020-07-06 05:57] LABS: BASOPHILS % (AUTO) 0 % (0-1); EOSINOPHILS % (AUTO) 4 % (1-7); LYMPHOCYTES % (AUTO) 12 % (22-44); MEAN CORPUSCULAR HEMOGLOBIN 38.3 pg (27.5-34.5); MEAN CORPUSCULAR HGB CONC 34.5 g/dL (33.2-36.2); MEAN PLATELET VOLUME 8.3 fL (7.4-10.4); MONOCYTES % (AUTO) 10 % (2-9); NEUTROPHILS % (AUTO) 74 % (42-75); PLATELET COUNT 150 x10^3/uL (130-400); RED BLOOD COUNT 2.39 x10^6/uL (4.38-5.82)
[2020-07-06 06:05] LABS: ALBUMIN 3.4 g/dL (3.4-5.0); CALCIUM 7.5 mg/dL (8.5-10.1); CHLORIDE 98 mmol/L (98-107)
[2020-07-06 06:08] LABS: ALANINE AMINOTRANSFERASE 10 U/L (12-78); ALKALINE PHOSPHATASE 91 U/L (45-117); ANION GAP 11 mmol/L (5-15); BILIRUBIN,TOTAL 0.3 mg/dL (0.2-1.0); CREATININE 9.53 mg/dL (0.7-1.3); TOTAL PROTEIN 6.9 g/dL (6.4-8.2)
[2020-07-06 06:10] LABS: MD NO
[2020-07-06] MEDS: HEPARIN 5,000 UNITS/ML, 1ML SQ SCH ×2 (06:14→18:33)
[2020-07-06] MEDS: PANTOPRAZOLE 40MG TABLET PO SCH (06:14)
[2020-07-06 08:01] VITALS: BP 136/76
[2020-07-06] MEDS: LOSARTAN 25MG TABLET PO SCH (09:00)
[2020-07-06] MEDS: CALCITRIOL 0.25 MCG CAPSULE PO SCH (09:00)
[2020-07-06 10:38] LABS: ALANINE AMINOTRANSFERASE 11 U/L (12-78); ALBUMIN 3.6 g/dL (3.4-5.0)
[2020-07-06 10:40] LABS: ALKALINE PHOSPHATASE 108 U/L (45-117); BILIRUBIN, DIRECT < 0.1 mg/dL (0.1-0.2); BILIRUBIN,INDIRECT 0.3 mg/dL (0.0-2.0); BILIRUBIN,TOTAL 0.4 mg/dL (0.2-1.0); TOTAL PROTEIN 7.6 g/dL (6.4-8.2)
[2020-07-06 13:40] VITALS: BP 120/69
[2020-07-06] MEDS ORDERED: ARANESP 100 MCG/ML **ESRD SQ SCH (17:00)
[2020-07-06 19:09] VITALS: BP 130/73
[2020-07-07 01:32] VITALS: BP 113/70
[2020-07-07] MEDS: HEPARIN 5,000 UNITS/ML, 1ML SQ SCH ×2 (05:53→17:42)
[2020-07-07] MEDS: PANTOPRAZOLE 40MG TABLET PO SCH (05:53)
[2020-07-07 07:35] VITALS: BP 118/63
[2020-07-07] MEDS: LOSARTAN 25MG TABLET PO SCH (09:38)
[2020-07-07] MEDS: CALCITRIOL 0.25 MCG CAPSULE PO SCH (09:38)
[2020-07-07 13:36] VITALS: BP 129/67
[2020-07-07 18:38] VITALS: BP 114/65
[2020-07-08 02:47] VITALS: BP 117/72
[2020-07-08] MEDS: PANTOPRAZOLE 40MG TABLET PO SCH (05:42)
[2020-07-08] MEDS: HEPARIN 5,000 UNITS/ML, 1ML SQ SCH ×2 (05:43→17:11)
[2020-07-08 07:39] VITALS: BP 126/73
[2020-07-08] MEDS: CALCITRIOL 0.25 MCG CAPSULE PO SCH (08:43)
[2020-07-08] MEDS: LOSARTAN 25MG TABLET PO SCH (08:43)
[2020-07-08] MEDS: ERGOCALCIFEROL 50,000 UNIT CAPSULE PO SCH (08:43)
[2020-07-08 13:02] VITALS: BP 131/70
[2020-07-08 20:41] VITALS: BP 125/75
[2020-07-09 01:47] VITALS: BP 130/77
[2020-07-09 05:41] LABS: BASOPHILS % (AUTO) 0 % (0-1); EOSINOPHILS % (AUTO) 5 % (1-7); LYMPHOCYTES % (AUTO) 13 % (22-44); MEAN CORPUSCULAR HEMOGLOBIN 37.6 pg (27.5-34.5); MEAN CORPUSCULAR HGB CONC 34.5 g/dL (33.2-36.2); MEAN PLATELET VOLUME 7.7 fL (7.4-10.4); MONOCYTES % (AUTO) 10 % (2-9); NEUTROPHILS % (AUTO) 73 % (42-75); PLATELET COUNT 180 x10^3/uL (130-400); RED BLOOD COUNT 2.67 x10^6/uL (4.38-5.82); RED CELL DISTRIBUTION WIDTH 18.7 % (9.4-14.8)
[2020-07-09 05:49] LABS: ALBUMIN 3.4 g/dL (3.4-5.0); ANION GAP 11 mmol/L (5-15); CALCIUM 7.6 mg/dL (8.5-10.1); CHLORIDE 101 mmol/L (98-107)
[2020-07-09] MEDS: PANTOPRAZOLE 40MG TABLET PO SCH (06:04)
[2020-07-09] MEDS: HEPARIN 5,000 UNITS/ML, 1ML SQ SCH ×2 (06:05→18:00)
[2020-07-09 06:16] LABS: MD SCAN
[2020-07-09 06:17] LABS: ALANINE AMINOTRANSFERASE 12 U/L (12-78); ALKALINE PHOSPHATASE 94 U/L (45-117); BILIRUBIN,TOTAL 0.3 mg/dL (0.2-1.0); TOTAL PROTEIN 6.8 g/dL (6.4-8.2)
[2020-07-09 07:01] VITALS: BP 136/77
[2020-07-09] MEDS: CALCITRIOL 0.25 MCG CAPSULE PO SCH (07:39)
[2020-07-09] MEDS: LOSARTAN 25MG TABLET PO SCH (07:39)
[2020-07-09] MEDS ORDERED: CYANOCOBALAMIN 1,000 MCG TABLET PO SCH (09:00)
[2020-07-09 12:58] VITALS: BP 124/73
[2020-07-09] MEDS ORDERED: Cyanocobalamin PO (14:53)
[2020-07-09] MEDS ORDERED: LOSA25TA25 PO (14:53)
[2020-07-09] MEDS ORDERED: PANT40TA6 PO (14:53)
[2020-07-09] MEDS ORDERED: CALC0.25 PO (14:53)
== END 2020-07-09 19:54 | disposition home or self-care (01) | DRG 674 ==
LOC: ED 21:34 → EDIP 21:41 → 4EST 23:11 → 3N 06-29 23:56
PROVIDERS: ADMIT Internal Medicine; ATTEND Internal Medicine
PROC: 30233N1 Transfusion of Nonautologous Red Blood Cells into Peripheral Vein, Percutaneous Approach (ICD-10-PCS; principal; 2020-06-07)
PROC: 02HV33Z Insertion of Infusion Device into Superior Vena Cava, Percutaneous Approach (ICD-10-PCS; 2020-06-07)
PROC: B548ZZA Ultrasonography of Superior Vena Cava, Guidance (ICD-10-PCS; 2020-06-07)
PROC: 5A1D70Z Performance of Urinary Filtration, Intermittent, Less than 6 Hours Per Day (ICD-10-PCS; 2020-06-09)
PROC: 0TB13ZX Excision of Left Kidney, Percutaneous Approach, Diagnostic (ICD-10-PCS; 2020-06-11)
PROC: 5A1D70Z Performance of Urinary Filtration, Intermittent, Less than 6 Hours Per Day (ICD-10-PCS; 2020-06-13)
PROC: 0JH63XZ Insertion of Tunneled Vascular Access Device into Chest Subcutaneous Tissue and Fascia, Percutaneous Approach (ICD-10-PCS; 2020-06-14)
PROC: 02HV33Z Insertion of Infusion Device into Superior Vena Cava, Percutaneous Approach (ICD-10-PCS; 2020-06-14)
PROC: B5181ZA Fluoroscopy of Superior Vena Cava using Low Osmolar Contrast, Guidance (ICD-10-PCS; 2020-06-14)
PROC: B543ZZA Ultrasonography of Right Jugular Veins, Guidance (ICD-10-PCS; 2020-06-14)
PROC: 5A1D70Z Performance of Urinary Filtration, Intermittent, Less than 6 Hours Per Day (ICD-10-PCS; 2020-06-15)
PROC: 5A1D70Z Performance of Urinary Filtration, Intermittent, Less than 6 Hours Per Day (ICD-10-PCS; 2020-06-18)
PROC: 5A1D70Z Performance of Urinary Filtration, Intermittent, Less than 6 Hours Per Day (ICD-10-PCS; 2020-06-20)
PROC: 5A1D70Z Performance of Urinary Filtration, Intermittent, Less than 6 Hours Per Day (ICD-10-PCS; 2020-06-22)
PROC: 5A1D70Z Performance of Urinary Filtration, Intermittent, Less than 6 Hours Per Day (ICD-10-PCS; 2020-06-25)
PROC: 5A1D70Z Performance of Urinary Filtration, Intermittent, Less than 6 Hours Per Day (ICD-10-PCS; 2020-06-27)
PROC: 5A1D70Z Performance of Urinary Filtration, Intermittent, Less than 6 Hours Per Day (ICD-10-PCS; 2020-06-29)
PROC: 031C0ZF Bypass Left Radial Artery to Lower Arm Vein, Open Approach (ICD-10-PCS; 2020-07-01)
PROC: 5A1D70Z Performance of Urinary Filtration, Intermittent, Less than 6 Hours Per Day (ICD-10-PCS; 2020-07-02)
DX: N17.9 Acute kidney failure, unspecified (principal); E87.1 Hypo-osmolality and hyponatremia; E87.2 Acidosis; D63.1 Anemia in chronic kidney disease; D69.6 Thrombocytopenia, unspecified; D72.829 Elevated white blood cell count, unspecified; E53.8 Deficiency of other specified B group vitamins; E83.51 Hypocalcemia; Z20.822 Contact with and (suspected) exposure to COVID-19; E87.6 Hypokalemia; I12.9 Hypertensive chronic kidney disease with stage 1 through stage 4 chronic kidney disease, or unspecified chronic kidney disease; N18.6 End stage renal disease; R04.0 Epistaxis; R31.29 Other microscopic hematuria; I95.9 Hypotension, unspecified; R00.0 Tachycardia, unspecified; R42 Dizziness and giddiness; R80.9 Proteinuria, unspecified; Z99.2 Dependence on renal dialysis
CPT/HCPCS: 36415; 96365; 96375; 99285; J3490; S0020; 36430; 36556; 36558; 36565; 50200; 71045; 76700; 76937; 77012; 80048; 80053; 80061; 80069; 80074; 80076; 80320; 81001; 82040; 82272; 82306; 82310; 82330; 82436; 82550; 82570; 82607; 82728; 83036; 83540; 83550; 83690; 83735; 83970; 84100; 84133; 84156; 84300; 84443; 84550; 85025; 85610; 85730; 86480; 86705; 86706; 86850; 86870; 86900; 86902; 86922; 86923; 87086; 87340; 87635; 88300; 90935; 93005; 93306; 99156; 99157; C1894; G0378; J0171; J0610; J0690; J0882; J1100; J1644; J1756; J2250; J2405; J2704; J2720; J3010; P9047; C1750; C1751; C9113; G0365; G0480; J0330; J0360; J1642; J2310; J2370; J3475; J7040; P9016